=== PATIENT | female | born 1980 | race Two or more races ===

== ENCOUNTER 2025-03-07 19:44 | Emergency (ER) | payer MEDICAID, OTHER ==
[~2025-03-07] VITALS: Ht 157.5 cm; Wt 82.0 kg
--- NOTE | 2025-03-07 20:10 | ED.PDOC ---
History of Present Illness HPI Comments 45-year-old female who came to ER via EMS for generalized weakness. Patient states she was at work earlier, but experiencing generalized weakness and numbness. She felt hot and tingling all over. [place] nauseated and had a near syncopal attack. Denies any possibility of . Blood sugar on scene was 114 REVIEW OF SYSTEMS: General: No fever, no chills, or fatigue HEENT: No sore throat, no earache, no congestion, no neck pain. Cardiac: No chest pain. No palpitations. Lungs: No shortness of breath, no cough. GI: No nausea, no vomiting, no diarrhea, no constipation, no abdominal pain : No dysuria, frequency, or urgency. No hematuria. Musculoskeletal: No joint pain , no joint swelling, no extremity edema. Skin: No rash, no itching. Neuro: No headache, no dizziness, (+) weakness, (+) numbness, (+) tingling EXAM: General: Awake, alert and oriented. No acute distress. Skin: Skin in warm, dry and intact. Appropriate color for ethnicity. HEENT: The head is normocephalic and atraumatic. Conjunctivae are clear without exudates or hemorrhage. Sclera is non-icteric. EOM are intact. No signs of nystagmus. Eyelids are normal in appearance without swelling or lesions. Oral mucosa is pink and moist Neck: The neck is supple with normal range of motion. No JVD. Cardiac: Heart rate and rhythm are normal. No murmurs, gallops, or rubs are auscultated. Respiratory: No signs of respiratory distress. Lung sounds are clear in all lobes bilaterally without rales, rhonchi, or wheezes. Abdominal: Abdomen is soft, non-tender without distention. Bowel sounds are present and normoactive in all four quadrants. Extremities: Upper and lower extremities are atraumatic in appearance without deformity or edema. Neurological: The patient is awake, alert and oriented to person, place, and time with normal speech. Speech is clear. There is no facial asymmetry. Psychiatric: Appropriate mood and affect. 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 Was a procedure done?: No Differential Dx Considerations may include: Anemia, electrolyte imbalance, TIA, CVA, weakness X-Ray, Labs, Meds, VS Vital Signs Date Time Temp Pulse Resp B/P (MAP) Pulse Ox O2 Delivery O2 Flow Rate FiO2 03/07/25 19:56 82 03/07/25 19:44 97.9 78 16 183/89 98 97.9 Lab Test 03/07/25 20:13 Range/Units White Blood Count 11.4 H 4.4-10.8 10^3/uL Red Blood Count 4.84 4.0-5.20 10^6/uL Hemoglobin 9.1 L 12.2-16.2 g/dL Hematocrit 29.8 L 36.0-46.0 % Mean Corpuscular Volume 61.5 L 80.0-100.0 fL Mean Corpuscular Hemoglobin 18.9 L 28.0-32.0 pg Mean Corpuscular Hemoglobin Concent 30.7 L 32.0-36.0 g/dL Red Cell Distribution Width 17.2 H 11.8-14.3 % Platelet Count 390 140-450 10^3/uL Mean Platelet Volume 9.0 6.9-10.8 fL Neutrophils (%) (Auto) 69.4 37.0-80.0 % Lymphocytes (%) (Auto) 23.8 10.0-50.0 % Monocytes (%) (Auto) 4.9 0.0-12.0 % Eosinophils (%) (Auto) 1.4 0.0-7.0 % Basophils (%) (Auto) 0.5 0.0-2.0 % Neutrophils # (Auto) 8.0 1.6-8.6 10 ^3/uL Lymphocytes # (Auto) 2.7 0.4-5.4 10 ^3/uL Monocytes # (Auto) 0.6 0-1.3 10 ^3/uL Eosinophils # (Auto) 0.2 0-0.8 10 ^3/uL Basophils # (Auto) 0.1 0-0.2 10 ^3/uL Nucleated Red Blood Cells 0.0 % Sodium Level 140 136-145 mmol/L Potassium Level 2.9 L 3.5-5.1 mmol/L Chloride Level 102 98-107 mmol/L Carbon Dioxide Level 25 20-31 mmol/L Anion Gap 13 5-15 Blood Urea Nitrogen 8 L 9-23 mg/dL Creatinine 0.58 0.550-1.02 mg/dL Glomerular Filtration Rate Calc 113 >90 mL/min BUN/Creatinine Ratio 13.8 10.0-20.0 Serum Glucose 108 H 74-106 mg/dL Calcium Level 9.0 8.7-10.4 mg/dL Troponin I High Sensitivity < 3 L </=34 ng/L Time of 1ST Reevaluation: 20:04 Reevaluation 1ST: Unchanged Patient Education/Counseling: Need For Follow Up Family Education/Counseling: No Family Present SEPSIS Sepsis Screen Physician Orders Electrocardigram (03/07/25 19:58) Potassium Chl 20meq/100ml (03/07/25 22:45) Vital Signs Date Time Temp Pulse Resp B/P (MAP) Pulse Ox O2 Delivery O2 Flow Rate FiO2 03/07/25 19:56 82 03/07/25 19:44 97.9 78 16 183/89 98 97.9 Laboratory Tests Test 03/07/25 20:13 White Blood Count 11.4 10^3/uL (4.4-10.8) H Departure 1 Departure Time of Disposition: 23:55 Impression: Primary Impression: Hypokalemia Disposition: 01 HOME / SELF CARE / HOMELESS Condition: Stable Additional Instructions: ED DISCHARGE INSTRUCTIONS Instructions: Please read all instructions provided in this packet carefully. Although you have been discharged from the Emergency Department, this does not mean that you have a "clean bill of health". No definitive diagnosis for your symptoms has been made today. It is possible that you are in the process of developing a serious illness. This is why you must return to the ED without fail if any new or worsening symptoms (especially if your symptoms include chest pain, trouble breathing, abdominal pain, fever, headache, confusion, trouble seeing, or trouble walking) It is also very important that you see a primary care provider (PCP) within the next 3-5 days to follow up. If you are unable to get an appointment, return to the ED for re-evaluation. Hypokalemia: Care Instructions Table of Contents Your Care Instructions How can you care for yourself at home? When should you call for help? Credits Your Care Instructions Hypokalemia (say "eb-qu-vfx-SEAN-mady-uh") is a low level of potassium. The heart, muscles, kidneys, and nervous system all need potassium to work well. This problem has many different causes. Kidney problems, diet, and medicines like diuretics and laxatives can cause it. So can vomiting or diarrhea. In some cases, cancer is the cause. Your doctor may do tests to find the cause of your low potassium levels. You may need medicines to bring your potassium levels back to normal. You may also need regular blood tests to check your potassium. If you have very low potassium, you may need intravenous (I.V.) medicines. You also may need tests to check the electrical activity of your heart. Heart problems caused by low potassium levels can be very serious. Follow-up care is a hernandez part of your treatment and safety. Be sure to make and go to all appointments, and call your doctor if you are having problems. It's also a good idea to know your test results and keep a list of the medicines you take. How can you care for yourself at home? If your doctor recommends it, eat foods that have a lot of potassium. These include fresh fruits, juices, and vegetables. They also include nuts, beans, and milk. Be safe with medicines. If your doctor prescribes medicines or potassium s upplements, take them exactly as directed. Call your doctor if you have any problems with your medicines. Get your potassium levels tested as often as your doctor tells you. When should you call for help? Call 911 anytime you think you may need emergency care. For example, call if: You feel like your heart is missing beats. Heart problems caused by low potassium can cause . You passed out (lost consciousness). You have a seizure. Call your doctor now or seek immediate medical care if: You feel weak or unusually tired. You have severe arm or leg cramps. You have tingling or numbness. You feel sick to your stomach, or you vomit. You have belly cramps. You feel bloated or constipated. You have to urinate a lot. You feel very thirsty most of the time. You are dizzy or lightheaded, or you feel like you may faint. You feel depressed, or you lose touch with reality. Watch closely for changes in your health, and be sure to contact your doctor if: You do not get better as expected. Credits for Hypokalemia: Care Instructions Current as of: July 25, 2024 Author: [employer] Staff Clinical Review Board All [employer] education is reviewed by a team that includes physicians, nurses, advanced practitioners, registered dieticians, and other formerly [facility] professionals. e-Prescriptions Potassium Chloride (Potassium Chloride ER) 10 Meq Tab 10 MEQ PO DAILY for 7 Days, #7 TAB Prov: HALEY ASTORGA MD 03/07/25 Comments Patient improved with treatment in the emergency department. [place] stable for discharge home Patient is neurologically intact. EKG and troponin negative for ischemia. Potassium replaced in the ED. Critical Care Note Critical Care Time?: No Stability Stability form required: No Heart Score Heart Score: Heart Score Response (Comments) Value History N/A 0 EKG N/A 0 Age N/A 0 Risk Factors N/A 0 Troponin N/A 0 Total 0 I personally scribed for HALEY ASTORGA MD ([email or web address]) on 03/07/25 at 20:10. Electronically submitted by Randy Brasher ([email or web address]). HALEY ASTORGA MD Mar 07, 2025 20:10
[2025-03-07 20:25] LABS: Nucleated Red Blood Cells % 0.0 %
[2025-03-07 20:26] LABS: Hematocrit 29.8 % (36.0-46.0); Hemoglobin 9.1 g/dL (12.2-16.2); Mean Corpuscular Hemoglobin 18.9 pg (28.0-32.0); Mean Corpuscular Volume 61.5 fL (80.0-100.0)
[2025-03-07 20:32] LABS: Chloride 102 mmol/L (98-107); Sodium 140 mmol/L (136-145)
[2025-03-07 20:34] LABS: Anion Gap 13 (5-15); Calcium 9.0 mg/dL (8.7-10.4); Carbon Dioxide 25 mmol/L (20-31)
[2025-03-07 20:39] LABS: BUN/Creatinine Ratio 13.8 (10.0-20.0)
[2025-03-07 21:05] LABS: Blood Urea Nitrogen 8 mg/dL (9-23); Glucose 108 mg/dL (74-106); Potassium 2.9 mmol/L (3.5-5.1)
[2025-03-07] MEDS ORDERED: POTA-228 PO (23:58)
--- NOTE | 2025-03-08 00:49 | ECG ---
[facility] Test Date: 2025-03-07 Test Time: 19:56:12 Pat Name: MARTINE BRAN Department: ED Room: Gender: F [employer] Performance Engineer: GRICELDA : 1980 Requested By: HALEY ASTORGA Order Number: [id number] Reading MD: Domenic Tran Measurements Intervals [place] Rate: 82 P: 17 NM: 166 QRS: -1 QRSD: 99 T: 34 QT: 391 QTc: 457 Interpretive Statements Sinus rhythm Probable left atrial enlargement Electronically Signed On 03-08-2025 9:09:59 PST by Domenic Tran Please click the below link to view image of tracing.
[2025-03-08 02:15] VITALS: PULSE 79; RESP 19; O2SAT 97
[2025-03-08] MEDS: SODIUM CHLORIDE 0.9% 1,000 ML IV ONE (02:21)
[2025-03-08] MEDS: POTASSIUM CHL 20MEQ/100ML 100 ML IV ONE (02:25)
[2025-03-08] MEDS: ACETAMINOPHEN 500 MG TAB or CAP PO ONE (02:26)
[2025-03-08] MEDS: MECLIZINE HCL 25 MG TAB PO ONE (02:26)
[2025-03-08] MEDS: POTASSIUM CHL 20 Meq TABLET PO ONE (02:26)
[2025-03-08] MEDS: ONDANSETRON HCL 4 MG/2 ML VIAL IV ONE (02:27)
[2025-03-08 04:15] VITALS: BP 111/69; PULSE 68; RESP 14; TEMP 98.6; O2SAT 94
== END 2025-03-08 05:35 | disposition home or self-care (01) ==
LOC: ER 19:44 → EDBD 19:44 → ER 03-08 05:35
DX: E87.6 Hypokalemia (principal); R55 Syncope and collapse; R11.0 Nausea; G89.29 Other chronic pain; Z90.49 Acquired absence of other specified parts of digestive tract
CPT/HCPCS: 36415; 80048; 83735; 84484; 85025; 93005; 96365; 96366; 96375; 99285; J2405; J3480; J8597